=== PATIENT | female | born 1960 | race Hispanic/Latino ===

== ENCOUNTER → 2017-08-08 | Outpatient (CLI) | payer BC ==
[~2017-08-08] MED LIST: ASPI-1181 PO; ATOR20TA65 PO; CELE-84 PO; DULO60CA63 PO; GABA-529 PO; PANT40TA25 PO; PROP60TA20 PO; ROPI1TAB11 PO; TIZA2TAB4 PO; TRAM50TA4 PO
== END | disposition home or self-care (01) ==
LOC: RAH 13:21
PROVIDERS: ATTEND Internal Medicine
DX: Z12.31 Encounter for screening mammogram for malignant neoplasm of breast (principal)
CPT/HCPCS: 77067

== ENCOUNTER → 2017-10-27 | Outpatient (CLI) | payer BC | END | disposition home or self-care (01) | LOC: RAH 12:46 | PROVIDERS: ATTEND Internal Medicine | DX: M17.12 Unilateral primary osteoarthritis, left knee (principal) | CPT/HCPCS: 73562 ==

== ENCOUNTER → 2019-07-04 | Outpatient (CLI) | payer BC ==
[~2019-07-04] MED LIST changes: -DULO60CA63 PO; +DULO60CA64 PO; -ROPI1TAB11 PO; +ROPI1TAB13 PO; -TIZA2TAB4 PO; +TIZA2TAB5 PO
== END | disposition home or self-care (01) ==
LOC: RAH 15:01
PROVIDERS: ATTEND Internal Medicine
DX: R20.2 Paresthesia of skin (principal)
CPT/HCPCS: 93880

== ENCOUNTER → 2019-07-09 | Outpatient (CLI) | payer BC | END | disposition home or self-care (01) | LOC: RAH 10:00 | PROVIDERS: ATTEND Internal Medicine | DX: R20.2 Paresthesia of skin (principal) | CPT/HCPCS: 70450 ==

== ENCOUNTER → 2020-09-03 | Outpatient (CLI) | payer BC ==
[~2020-09-03] MED LIST changes: -ASPI-1181 PO; +ASPI-1443 PO; -PANT40TA25 PO; +PANT40TA54 PO; +TIZA-194 PO; -TIZA2TAB5 PO
== END | disposition home or self-care (01) ==
LOC: RAH 14:16
PROVIDERS: ATTEND Internal Medicine
DX: Z12.31 Encounter for screening mammogram for malignant neoplasm of breast (principal)
CPT/HCPCS: 77067

== ENCOUNTER → 2021-09-25 | Outpatient (CLI) | payer BC | END | disposition home or self-care (01) | LOC: RAH 15:22 | PROVIDERS: ATTEND Internal Medicine | DX: M47.816 Spondylosis without myelopathy or radiculopathy, lumbar region (principal); M54.50 Low back pain, unspecified | CPT/HCPCS: 72100 ==

== ENCOUNTER 2022-08-10 14:31 | Emergency (ER) | payer BC ==
[~2022-08-10] VITALS: Ht 152.4 cm; Wt 106.6 kg
[2022-08-10 14:39] VITALS: BP 155/79
[2022-08-10] MEDS ORDERED: 0.9%NACL 1000ML 1,000 ML IV ONE (15:00)
== END 2022-08-10 15:15 | disposition left against medical advice (07) ==
LOC: EDH 14:31
DX: R55 Syncope and collapse (principal); I10 Essential (primary) hypertension; E11.9 Type 2 diabetes mellitus without complications; E78.00 Pure hypercholesterolemia, unspecified; Z79.899 Other long term (current) drug therapy; Z79.82 Long term (current) use of aspirin; Z88.0 Allergy status to penicillin; Z88.1 Allergy status to other antibiotic agents; Z88.8 Allergy status to other drugs, medicaments and biological substances
CPT/HCPCS: 82948; 93005